=== PATIENT | male | born 1940 | race Caucasian/White ===

== ENCOUNTER 2018-09-01 11:53 | Emergency (ER) | payer MEDICARE, OTHER ==
[~2018-09-01] VITALS: Ht 175.3 cm; Wt 90.0 kg
[~2018-09-01 11:53] MED LIST: APIX5TAB3 PO; ASPI-1265 PO; BUTA1TAB54 PO; ESOM20CA PO; EZET10TA26 PO; FENO145T25 PO; METO25TA6 PO; TRIA1TAB3 PO
[2018-09-01] MEDS ORDERED: HYDROcodone/acetaminophen 5mg/325mg tablet PO ONE (12:25)
[2018-09-01] MEDS ORDERED: HYDR-3965 PO (14:31)
[2018-09-01 14:53] VITALS: BP 126/82
== END 2018-09-01 14:56 | disposition home or self-care (01) ==
LOC: ER 11:57
DX: M79.662 Pain in left lower leg (principal); I82.412 Acute embolism and thrombosis of left femoral vein; I10 Essential (primary) hypertension; E11.9 Type 2 diabetes mellitus without complications; Z79.899 Other long term (current) drug therapy; Z79.82 Long term (current) use of aspirin
CPT/HCPCS: 93970; 99284

== ENCOUNTER 2020-04-15 15:35 | Emergency (ER) | payer MEDICARE, OTHER ==
[~2020-04-15] VITALS: Ht 175.3 cm; Wt 95.0 kg
[~2020-04-15 15:35] MED LIST changes: -EZET10TA26 PO; +EZET10TA48 PO
--- NOTE | 2020-04-15 17:35 | NUR ---
[employer]E [employer] B[employer] AT BEDSIDE.
[2020-04-15 18:27] VITALS: BP 146/82
== END 2020-04-15 18:30 | disposition home or self-care (01) ==
LOC: ER 15:35
DX: K21.9 Gastro-esophageal reflux disease without esophagitis (principal); I10 Essential (primary) hypertension; M79.604 Pain in right leg; E11.9 Type 2 diabetes mellitus without complications; Z86.718 Personal history of other venous thrombosis and embolism; Z90.49 Acquired absence of other specified parts of digestive tract; Z98.890 Other specified postprocedural states; Z79.01 Long term (current) use of anticoagulants
CPT/HCPCS: 93971; 99284

== ENCOUNTER 2023-10-05 16:45 | Emergency (ER) | payer MEDICARE, OTHER ==
[~2023-10-05] VITALS: Ht 175.3 cm; Wt 90.9 kg
[~2023-10-05 16:45] MED LIST changes: +LOP25T PO; -METO25TA6 PO
[2023-10-05 16:52] VITALS: TEMP 97.8
[2023-10-05 17:42] LABS: BASOPHILS # (AUTO) 0.1 X10'3 (0-0.2); BASOPHILS % (AUTO) 1.1 % (0-1); EOSINOPHILS # (AUTO) 0.2 X10'3 (0-0.9); EOSINOPHILS % (AUTO) 2.5 % (0-6); HEMATOCRIT 42.9 % (42.0-52.0); HEMOGLOBIN 15.1 g/dl (14.0-17.9); LYMPHOCYTES # (AUTO) 1.2 X10'3 (1.1-4.8); LYMPHOCYTES % (AUTO) 18.6 % (21-51); MEAN CORPUSCULAR HEMOGLOBIN 31.3 PG (27.0-31.0); MEAN CORPUSCULAR HGB CONC 35.3 g/dL (33.0-36.5); MEAN CORPUSCULAR VOLUME 88.8 FL (78-98); MEAN PLATELET VOLUME 7.9 FL (7.4-10.4); MONOCYTES # (AUTO) 0.5 X10'3 (0-0.9); MONOCYTES % (AUTO) 8.7 % (2-12); NEUTROPHILS # (AUTO) 4.3 X10'3 (1.8-7.7); NEUTROPHILS % (AUTO) 69.1 % (42-75); PLATELET COUNT 199 X10'3 (140-440); RED BLOOD COUNT 4.83 X10'6 (4.70-6.10); RED CELL DISTRIBUTION WIDTH 13.8 % (11.5-14.5); WHITE BLOOD COUNT 6.3 X10'3 (4.5-11.0)
[2023-10-05 18:03] LABS: ALBUMIN 4.1 G/DL (3.4-5.0); ANION GAP 8 (8-16); BLOOD UREA NITROGEN 20 MG/DL (7-18); BUN/CREATININE RATIO 18.2 (10.0-20.0); CALCIUM 9.9 MG/DL (8.5-10.1); CHLORIDE 110 MMOL/L (99-107); GLUCOSE 90 MG/DL (70-104); POTASSIUM 3.6 MMOL/L (3.5-5.1); PRO BRAIN NATRIURETIC PEPTIDE 478 PG/ML (0-450); SODIUM 146 MMOL/L (135-145); TOTAL CARBON DIOXIDE 27.6 MMOL/L (24-32); eCRCL 53 ML/MIN; eGFR 64 ML/MIN
[2023-10-05] MEDS: metoclopramide 5 mg/ml inj IM ONE (18:45)
[2023-10-05] MEDS: diphenhydrAMINE 50 mg/ml inj IM ONE (18:45)
[2023-10-05] MEDS: HYDROcodone/acetaminophen 5mg/325mg tablet PO ONE (18:45)
[2023-10-05 19:11] LABS: APTT 30 SECONDS (22-32); INR 1.1 INR
[2023-10-05 19:14] LABS: ALANINE AMINOTRANSFERASE 39 U/L (12-78); ALBUMIN 4.2 G/DL (3.4-5.0); ALBUMIN/GLOBULIN RATIO 1.4 (1.1-1.5); ALKALINE PHOSPHATASE 57 IU/L (46-116); ANION GAP 8 (8-16); ASPARTATE AMINO TRANSFERASE 26 U/L (10-37); BILIRUBIN,TOTAL 0.7 MG/DL (0.1-1.0); BLOOD UREA NITROGEN 20 MG/DL (7-18); BUN/CREATININE RATIO 18.5 (10.0-20.0); CALCIUM 9.7 MG/DL (8.5-10.1); CHLORIDE 109 MMOL/L (99-107); CREATININE 1.08 MG/DL (0.60-1.10); GLUCOSE 93 MG/DL (70-104); POTASSIUM 3.7 MMOL/L (3.5-5.1); SODIUM 147 MMOL/L (135-145); TOTAL CARBON DIOXIDE 30.1 MMOL/L (24-32); TOTAL PROTEIN 7.3 G/DL (6.4-8.2); eCRCL 54 ML/MIN; eGFR 66 ML/MIN
[2023-10-05 19:20] LABS: PRO BRAIN NATRIURETIC PEPTIDE 519 PG/ML (0-450)
[2023-10-05] MEDS ORDERED: butalbital/acetaminophen/caffeine (Fioricet) tablet PO ONE (19:40)
[2023-10-05] MEDS ORDERED: BUTA-245 PO (19:43)
[2023-10-05] MEDS ORDERED: codeine/butalbital/acetaminophen/caffeine capsule PO ONE (19:55)
[2023-10-05] MEDS: lisinopril 10 MG tablet PO ONE (19:57)
[2023-10-05] MEDS: codeine/butalbital/acetaminophen/caffeine capsule PO ONE (20:11)
[2023-10-05 20:43] LABS: BILIRUBIN,URINE NEGATIVE (Neg); COLOR,URINE YELLOW (Yellow); GLUCOSE, URINE NEGATIVE (Neg); KETONES,URINE NEGATIVE (Neg); LEUKOCYTE ESTERASE ,URINE NEGATIVE (Neg); NITRITES, URINE NEGATIVE (Neg); OCCULT BLOOD,URINE NEGATIVE (Neg); PH,URINE 7.5 (4.8-8.0); PROTEIN,URINE NEGATIVE (Neg); UROBILINOGEN,URINE 0.2 E.U/dL (0.2-1.0)
[2023-10-05 20:44] LABS: CLARITY,URINE SLIGHTLY CLOUDY (Clear); UA COLLECTION TYPE CLN CATCH MIDSTREAM
[2023-10-05 20:54] LABS: BACTERIA,URINE FEW /HPF (Neg); RBC,URINE 0-2 /HPF (0-2); SQUAMOUS EPITHELIAL CELL,UR FEW /LPF (FEW); WBC,URINE 0-4 /HPF (0-4)
[2023-10-05 20:55] LABS: AMORPHOUS PHOSPHATES 2+
[2023-10-05 21:27] VITALS: BP 177/91; PULSE 56; RESP 18; O2SAT 97
== END 2023-10-05 21:28 | disposition home or self-care (01) ==
LOC: ER 16:46
DX: R35.0 Frequency of micturition (principal); I10 Essential (primary) hypertension; R51.9 Headache, unspecified; E11.9 Type 2 diabetes mellitus without complications; Z90.49 Acquired absence of other specified parts of digestive tract; Z79.899 Other long term (current) drug therapy
CPT/HCPCS: 36415; 70450; 71045; 80048; 80053; 81001; 83880; 84484; 85025; 85610; 85730; 87502; 87503; 93005; 99285

== ENCOUNTER 2024-05-22 12:44 | Inpatient (IN) | payer MEDICARE, OTHER ==
[~2024-05-22] VITALS: Ht 175.3 cm; Wt 99.5 kg
[~2024-05-22 12:44] MED LIST changes: -ASPI-1265 PO; +BUTA1TAB48 PO; -BUTA1TAB54 PO; -ESOM20CA PO; +INDLA80C PO; -LOP25T PO; +OLME40TA70 PO; +OMEP20CA16 PO; +POTA-207 PO
[2024-05-22 13:32] LABS: BASOPHILS % (AUTO) 0.4 % (0-1); EOSINOPHILS % (AUTO) 0 % (0-6); HEMATOCRIT 43.5 % (42.0-52.0); LYMPHOCYTES # (AUTO) 0.8 X10'3 (1.1-4.8); LYMPHOCYTES % (AUTO) 10.8 % (21-51); MEAN CORPUSCULAR HEMOGLOBIN 30.7 PG (27.0-31.0); MEAN CORPUSCULAR HGB CONC 34.6 g/dL (33.0-36.5); MEAN CORPUSCULAR VOLUME 88.7 FL (78-98); MEAN PLATELET VOLUME 7.6 FL (7.4-10.4); MONOCYTES # (AUTO) 1.2 X10'3 (0-0.9); MONOCYTES % (AUTO) 16.2 % (2-12); NEUTROPHILS # (AUTO) 5.2 X10'3 (1.8-7.7); NEUTROPHILS % (AUTO) 72.6 % (42-75); PLATELET COUNT 185 X10'3 (140-440); RED CELL DISTRIBUTION WIDTH 14.3 % (11.5-14.5); WHITE BLOOD COUNT 7.2 X10'3 (4.5-11.0)
[2024-05-22 13:44] LABS: ALBUMIN 3.7 G/DL (3.4-5.0); ANION GAP 9 (8-16); BLOOD UREA NITROGEN 21 MG/DL (7-18); BUN/CREATININE RATIO 17.6 (10.0-20.0); CHLORIDE 106 MMOL/L (99-107); CREATININE 1.19 MG/DL (0.60-1.10); GLUCOSE 93 MG/DL (70-104); POTASSIUM 3.5 MMOL/L (3.5-5.1); SODIUM 140 MMOL/L (135-145); TOTAL CARBON DIOXIDE 25.4 MMOL/L (24-32); eCRCL 48 ML/MIN; eGFR 59 ML/MIN
[2024-05-22 13:49] LABS: APTT 31 SECONDS (22-32); INR 1.2 INR; PROTHROMBIN TIME 12.3 SECONDS (9.0-12.0)
[2024-05-22 13:50] LABS: PLATELET ESTIMATE NORMAL; TOTAL CELLS COUNTED 100
[2024-05-22 15:00] LABS: BILIRUBIN,URINE SMALL (Neg); CLARITY,URINE CLEAR (Clear); COLOR,URINE YELLOW (Yellow); GLUCOSE, URINE NEGATIVE (Neg); KETONES,URINE TRACE mg/dl (Neg); LEUKOCYTE ESTERASE ,URINE NEGATIVE (Neg); NITRITES, URINE NEGATIVE (Neg); OCCULT BLOOD,URINE NEGATIVE (Neg); PROTEIN,URINE TRACE mg/dl (Neg); UROBILINOGEN,URINE 0.2 E.U/dL (0.2-1.0)
[2024-05-22 15:07] LABS: UA COLLECTION TYPE VOIDED
[2024-05-22 15:08] LABS: BACTERIA,URINE FEW /HPF (Neg); MUCUS STRANDS MANY /LPF (Neg); RBC,URINE NONE SEEN /HPF (0-2); SQUAMOUS EPITHELIAL CELL,UR FEW /LPF (FEW); WBC,URINE 0-4 /HPF (0-4)
[2024-05-22 15:09] LABS: ALANINE AMINOTRANSFERASE 31 U/L (12-78); ALBUMIN/GLOBULIN RATIO 1.1 (1.1-1.5); ALKALINE PHOSPHATASE 56 IU/L (46-116); ASPARTATE AMINO TRANSFERASE 68 U/L (10-37); BILIRUBIN,TOTAL 0.6 MG/DL (0.1-1.0); TOTAL PROTEIN 7.1 G/DL (6.4-8.2)
[2024-05-22] MEDS ORDERED: CARB1TAB36 PO (19:01)
[2024-05-22] MEDS ORDERED: APIX5TAB3 PO (19:01)
[2024-05-22] MEDS ORDERED: AMLO2.5T5 PO (19:01)
[2024-05-22] MEDS ORDERED: ESCI20TA39 PO (19:01)
[2024-05-22] MEDS ORDERED: OMEP20CA16 PO (19:03)
[2024-05-22] MEDS ORDERED: OLME40TA18 PO (19:03)
[2024-05-22] MEDS ORDERED: UBIQ100C2 PO (19:04)
[2024-05-22] MEDS ORDERED: EZET10TA6 PO (19:05)
[2024-05-22] MEDS ORDERED: FENO145T38 PO (19:05)
[2024-05-22] MEDS ORDERED: PROP40TA72 PO (19:07)
[2024-05-22] MEDS ORDERED: CARB-321 PO (19:10)
[2024-05-22] MEDS ORDERED: potassium Cl 20 mEq SR tablet PO PRN (20:25)
[2024-05-22] MEDS ORDERED: potassium Cl 40MEQ/1/2NS 520ml 520 ML IV PRN (20:25)
[2024-05-22] MEDS ORDERED: magnesium Cl slow-release 64mg tablet PO PRN (20:25)
[2024-05-22] MEDS ORDERED: magnesium sulf-water 2g/50mL 50 ML IV PRN (20:25)
[2024-05-22] MEDS ORDERED: magnesium hydroxide 30ml (MOM) UD suspension PO PRN (20:25)
[2024-05-22] MEDS ORDERED: morphine 2 MG/ML inj. syringe IV PRN (20:25)
[2024-05-22] MEDS ORDERED: ondansetron/PF 4mg/2ml inj IV PRN (20:25)
[2024-05-22] MEDS ORDERED: magnesium sulf-water 4G/100mL 100 ML IV PRN (20:25)
[2024-05-22] MEDS ORDERED: PERFLUTREN PROTEIN-A MICROSPHR (Optison) 0.22 MG/ML 3ML VIAL IV PRN (20:35)
[2024-05-22] MEDS: normal saline 1000ml 1,000 ML IV SCH (23:06)
[2024-05-22 23:07] VITALS: PULSE 59; RESP 20; O2SAT 95
[2024-05-22] MEDS: carbidoba-levodopa 25-100mg tablet PO ONE (23:18)
[2024-05-23] MEDS ORDERED: carbidoba-levodopa 25-100mg tablet PO SCH
[2024-05-23] MEDS: apixaban 5mg tablet PO STA (00:07)
[2024-05-23] MEDS ORDERED: iohexol 350MG/ML 100ml bottle IV ONE (05:13)
[2024-05-23] MEDS: acetaminophen 325mg tablet PO PRN (05:43)
[2024-05-23] MEDS: K and/or MAG REPLACEMENT MC SCH (06:17)
[2024-05-23 07:23] LABS: BASOPHILS % (AUTO) 0.4 % (0-1); EOSINOPHILS % (AUTO) 0.2 % (0-6); HEMATOCRIT 40.6 % (42.0-52.0); HEMOGLOBIN 14.1 g/dl (14.0-17.9); LYMPHOCYTES # (AUTO) 0.7 X10'3 (1.1-4.8); LYMPHOCYTES % (AUTO) 14.2 % (21-51); MEAN CORPUSCULAR HEMOGLOBIN 30.5 PG (27.0-31.0); MEAN CORPUSCULAR HGB CONC 34.6 g/dL (33.0-36.5); MEAN CORPUSCULAR VOLUME 88.1 FL (78-98); MONOCYTES # (AUTO) 0.7 X10'3 (0-0.9); MONOCYTES % (AUTO) 14.1 % (2-12); NEUTROPHILS # (AUTO) 3.6 X10'3 (1.8-7.7); NEUTROPHILS % (AUTO) 71.1 % (42-75); PLATELET COUNT 148 X10'3 (140-440); RED BLOOD COUNT 4.61 X10'6 (4.70-6.10)
[2024-05-23 07:50] LABS: ALBUMIN 3.2 G/DL (3.4-5.0); ANION GAP 11 (8-16); BLOOD UREA NITROGEN 17 MG/DL (7-18); BUN/CREATININE RATIO 16.8 (10.0-20.0); CALCIUM 9.3 MG/DL (8.5-10.1); CHLORIDE 105 MMOL/L (99-107); CHOL/HDL RATIO 4.1 (0.00-4.99); CHOLESTEROL 147 MG/DL (0-200); CREATININE 1.01 MG/DL (0.60-1.10); GLUCOSE 95 MG/DL (70-104); HDL CHOLESTEROL 36 MG/DL (35-60); LDL CHOLESTEROL 97 MG/DL (50-100); MAGNESIUM 1.9 MG/DL (1.5-2.4); POTASSIUM 3.4 MMOL/L (3.5-5.1); SODIUM 140 MMOL/L (135-145); TOTAL CARBON DIOXIDE 23.7 MMOL/L (24-32); TRIGLYCERIDES 117 MG/DL (20-135); eCRCL 56 ML/MIN; eGFR 71 ML/MIN
[2024-05-23] MEDS: PROPANOLOL 80 MG PO SCH (08:00)
[2024-05-23] MEDS: apixaban 5mg tablet PO SCH (08:36)
[2024-05-23] MEDS: docusate sod 100mg capsule PO SCH (08:36)
[2024-05-23] MEDS: fenofibrate 145mg tablet PO SCH (08:36)
[2024-05-23] MEDS: carbidoba-levodopa 25-100mg tablet PO SCH (08:36)
[2024-05-23] MEDS: ezetimibe 10mg tablet PO SCH (08:36)
[2024-05-23] MEDS: ESCITALOPRAM 10 mg tablet 10 MG TABLET PO SCH (08:37)
[2024-05-23] MEDS: pantoprazole 40mg Tablet.DR PO SCH (08:37)
[2024-05-23] MEDS: HYDROcodone/acetaminophen 5mg/325mg tablet PO PRN (12:40)
[2024-05-23] MEDS: aspirin 81mg, enteric-coated 1 TAB TABLET.DR PO SCH (13:59)
[2024-05-23 16:00] VITALS: BP 167/86; PULSE 67; TEMP 98; O2SAT 98
[2024-05-23] MEDS: potassium Cl 20 mEq SR tablet PO PRN (16:17)
[2024-05-23 18:00] VITALS: BP 167/86; PULSE 67; RESP 18; TEMP 98; O2SAT 96
[2024-05-23 20:00] VITALS: RESP 18; O2SAT 98
[2024-05-23] MEDS: atorvastatin 20mg tablet PO SCH (20:58)
[2024-05-23 22:00] VITALS: BP 186/100; PULSE 58; RESP 18; TEMP 98.5; O2SAT 96
[2024-05-24] VITALS (7 sets, daily range): BP systolic 125–163; BP diastolic 80–92; PULSE 59–95; RESP 17–20; TEMP 97.6–98.8; O2SAT 93–99
[2024-05-24 06:53] LABS: BASOPHILS % (AUTO) 0.4 % (0-1); EOSINOPHILS # (AUTO) 0.1 X10'3 (0-0.9); EOSINOPHILS % (AUTO) 1.8 % (0-6); HEMATOCRIT 42.8 % (42.0-52.0); HEMOGLOBIN 14.7 g/dl (14.0-17.9); LYMPHOCYTES # (AUTO) 0.8 X10'3 (1.1-4.8); MEAN CORPUSCULAR HEMOGLOBIN 30.5 PG (27.0-31.0); MEAN CORPUSCULAR HGB CONC 34.4 g/dL (33.0-36.5); MEAN CORPUSCULAR VOLUME 88.7 FL (78-98); MEAN PLATELET VOLUME 8.1 FL (7.4-10.4); MONOCYTES # (AUTO) 0.5 X10'3 (0-0.9); MONOCYTES % (AUTO) 14.4 % (2-12); NEUTROPHILS # (AUTO) 2.3 X10'3 (1.8-7.7); NEUTROPHILS % (AUTO) 61.4 % (42-75); PLATELET COUNT 167 X10'3 (140-440); RED BLOOD COUNT 4.82 X10'6 (4.70-6.10); RED CELL DISTRIBUTION WIDTH 14.2 % (11.5-14.5); WHITE BLOOD COUNT 3.7 X10'3 (4.5-11.0)
[2024-05-24 07:03] LABS: ALBUMIN 3.2 G/DL (3.4-5.0); ANION GAP 9 (8-16); BLOOD UREA NITROGEN 15 MG/DL (7-18); BUN/CREATININE RATIO 17.4 (10.0-20.0); C-REACTIVE PROTEIN 2.65 MG/DL (0.0-0.5); CALCIUM 9.6 MG/DL (8.5-10.1); CHLORIDE 107 MMOL/L (99-107); CREATINE KINASE 439 U/L (39-308); CREATININE 0.86 MG/DL (0.60-1.10); GLUCOSE 98 MG/DL (70-104); MAGNESIUM 1.9 MG/DL (1.5-2.4); POTASSIUM 3.5 MMOL/L (3.5-5.1); SODIUM 142 MMOL/L (135-145); TOTAL CARBON DIOXIDE 25.6 MMOL/L (24-32); eCRCL 66 ML/MIN; eGFR 85 ML/MIN
[2024-05-24] MEDS: pantoprazole 40 MG vial IV SCH (07:35)
[2024-05-24 08:24] LABS: HEMOGLOBIN A1C 5.2 % (4.5-6.2)
[2024-05-24] MEDS: metoprolol succinate 25mg (24-HOUR) SR. Tablet PO SCH (10:34)
[2024-05-24] MEDS: metoprolol succinate 25mg (24-HOUR) SR. Tablet PO ONE ×2 (10:38→10:39)
[2024-05-25 06:00] VITALS: BP 171/92; PULSE 70; RESP 16; TEMP 98; O2SAT 92
[2024-05-25] MEDS: propranolol 40mg tablet PO SCH (07:15)
[2024-05-25 07:26] LABS: BASOPHILS % (AUTO) 0.6 % (0-1); EOSINOPHILS # (AUTO) 0.1 X10'3 (0-0.9); HEMATOCRIT 42.2 % (42.0-52.0); HEMOGLOBIN 14.5 g/dl (14.0-17.9); LYMPHOCYTES # (AUTO) 0.9 X10'3 (1.1-4.8); LYMPHOCYTES % (AUTO) 23.8 % (21-51); MEAN CORPUSCULAR HEMOGLOBIN 30.3 PG (27.0-31.0); MEAN CORPUSCULAR HGB CONC 34.3 g/dL (33.0-36.5); MEAN CORPUSCULAR VOLUME 88.3 FL (78-98); MEAN PLATELET VOLUME 8.4 FL (7.4-10.4); MONOCYTES # (AUTO) 0.5 X10'3 (0-0.9); MONOCYTES % (AUTO) 13.1 % (2-12); NEUTROPHILS # (AUTO) 2.3 X10'3 (1.8-7.7); NEUTROPHILS % (AUTO) 60.5 % (42-75); PLATELET COUNT 153 X10'3 (140-440); RED BLOOD COUNT 4.77 X10'6 (4.70-6.10); RED CELL DISTRIBUTION WIDTH 14.2 % (11.5-14.5); WHITE BLOOD COUNT 3.8 X10'3 (4.5-11.0)
[2024-05-25] MEDS: amLODIPine 5mg tablet PO SCH (09:06)
[2024-05-25 09:31] LABS: ALBUMIN 3.1 G/DL (3.4-5.0); ANION GAP 11 (8-16); BLOOD UREA NITROGEN 13 MG/DL (7-18); CALCIUM 9.1 MG/DL (8.5-10.1); CHLORIDE 107 MMOL/L (99-107); CREATININE 0.81 MG/DL (0.60-1.10); GLUCOSE 94 MG/DL (70-104); MAGNESIUM 1.6 MG/DL (1.5-2.4); POTASSIUM 3.2 MMOL/L (3.5-5.1); SODIUM 140 MMOL/L (135-145); TOTAL CARBON DIOXIDE 22.2 MMOL/L (24-32); eCRCL 70 ML/MIN; eGFR > 90 ML/MIN
[2024-05-25 10:00] VITALS: BP 163/94; PULSE 58; RESP 17; TEMP 97.8; O2SAT 95
[2024-05-25 18:00] VITALS: BP 170/90; PULSE 56; RESP 14; TEMP 98.5; O2SAT 96
[2024-05-25] MEDS ORDERED: potassium Cl 40MEQ/1/2NS 520ml 520 ML IV PRN (22:20)
[2024-05-25] MEDS ORDERED: magnesium sulf-water 2g/50mL 50 ML IV PRN (22:20)
[2024-05-25] MEDS ORDERED: magnesium Cl slow-release 64mg tablet PO PRN (22:20)
[2024-05-25] MEDS ORDERED: potassium Cl 20 mEq SR tablet PO PRN (22:20)
[2024-05-25] MEDS ORDERED: magnesium sulf-water 4G/100mL 100 ML IV PRN (22:20)
[2024-05-26] MEDS: potassium Cl 20 mEq SR tablet PO PRN (00:06)
[2024-05-26 06:00] VITALS: BP 159/82; PULSE 60; RESP 16; TEMP 98.1; O2SAT 96
[2024-05-26 06:55] LABS: BASOPHILS % (AUTO) 0.4 % (0-1); EOSINOPHILS # (AUTO) 0.1 X10'3 (0-0.9); EOSINOPHILS % (AUTO) 2.8 % (0-6); HEMATOCRIT 39.8 % (42.0-52.0); HEMOGLOBIN 13.9 g/dl (14.0-17.9); LYMPHOCYTES # (AUTO) 1.2 X10'3 (1.1-4.8); LYMPHOCYTES % (AUTO) 25.9 % (21-51); MEAN CORPUSCULAR HEMOGLOBIN 30.7 PG (27.0-31.0); MEAN CORPUSCULAR HGB CONC 34.9 g/dL (33.0-36.5); MEAN CORPUSCULAR VOLUME 88.1 FL (78-98); MEAN PLATELET VOLUME 7.9 FL (7.4-10.4); MONOCYTES # (AUTO) 0.6 X10'3 (0-0.9); MONOCYTES % (AUTO) 12.3 % (2-12); NEUTROPHILS # (AUTO) 2.7 X10'3 (1.8-7.7); NEUTROPHILS % (AUTO) 58.6 % (42-75); PLATELET COUNT 160 X10'3 (140-440); RED BLOOD COUNT 4.52 X10'6 (4.70-6.10); RED CELL DISTRIBUTION WIDTH 14.2 % (11.5-14.5); WHITE BLOOD COUNT 4.6 X10'3 (4.5-11.0)
[2024-05-26 07:21] LABS: ALBUMIN 2.9 G/DL (3.4-5.0); ANION GAP 2 (8-16); BLOOD UREA NITROGEN 17 MG/DL (7-18); BUN/CREATININE RATIO 16.2 (10.0-20.0); CALCIUM 9.2 MG/DL (8.5-10.1); CHLORIDE 105 MMOL/L (99-107); CREATININE 1.05 MG/DL (0.60-1.10); GLUCOSE 95 MG/DL (70-104); MAGNESIUM 1.6 MG/DL (1.5-2.4); POTASSIUM 4.1 MMOL/L (3.5-5.1); SODIUM 137 MMOL/L (135-145); eCRCL 54 ML/MIN; eGFR 68 ML/MIN
[2024-05-26 08:00] VITALS: RESP 16; O2SAT 94
[2024-05-26] MEDS ORDERED: ASPI-1071 PO (10:49)
[2024-05-26] MEDS ORDERED: NOR5T PO (10:49)
[2024-05-26] MEDS ORDERED: METO-395 PO (10:49)
[2024-05-26 11:15] VITALS: BP 151/81; PULSE 55; RESP 18; TEMP 97.9; O2SAT 96
[2024-05-26] MEDS: mag hydrox/Alum hydrox/simeth 30ml oral suspension PO PRN (16:39)
[2024-05-26 22:00] VITALS: BP 139/78; PULSE 72; RESP 16; TEMP 98.1; O2SAT 93
[2024-05-27 06:00] VITALS: BP 126/74; PULSE 62; RESP 17; TEMP 98; O2SAT 97
[2024-05-27 06:44] LABS: BASOPHILS % (AUTO) 0.4 % (0-1); EOSINOPHILS # (AUTO) 0.1 X10'3 (0-0.9); EOSINOPHILS % (AUTO) 2.7 % (0-6); HEMATOCRIT 39.3 % (42.0-52.0); HEMOGLOBIN 13.7 g/dl (14.0-17.9); LYMPHOCYTES # (AUTO) 0.8 X10'3 (1.1-4.8); LYMPHOCYTES % (AUTO) 20.9 % (21-51); MEAN CORPUSCULAR HEMOGLOBIN 30.7 PG (27.0-31.0); MEAN CORPUSCULAR HGB CONC 34.9 g/dL (33.0-36.5); MEAN CORPUSCULAR VOLUME 88.1 FL (78-98); MEAN PLATELET VOLUME 7.9 FL (7.4-10.4); MONOCYTES # (AUTO) 0.6 X10'3 (0-0.9); MONOCYTES % (AUTO) 13.9 % (2-12); NEUTROPHILS # (AUTO) 2.5 X10'3 (1.8-7.7); NEUTROPHILS % (AUTO) 62.1 % (42-75); PLATELET COUNT 159 X10'3 (140-440); RED BLOOD COUNT 4.46 X10'6 (4.70-6.10); RED CELL DISTRIBUTION WIDTH 13.8 % (11.5-14.5)
[2024-05-27 06:49] LABS: ALBUMIN 2.9 G/DL (3.4-5.0); ANION GAP 6 (8-16); BLOOD UREA NITROGEN 19 MG/DL (7-18); CALCIUM 9.2 MG/DL (8.5-10.1); CHLORIDE 108 MMOL/L (99-107); CREATININE 0.95 MG/DL (0.60-1.10); GLUCOSE 88 MG/DL (70-104); POTASSIUM 3.5 MMOL/L (3.5-5.1); SODIUM 140 MMOL/L (135-145); eCRCL 60 ML/MIN; eGFR 76 ML/MIN
[2024-05-27 10:00] VITALS: BP 165/82; PULSE 60; RESP 16; TEMP 97.9; O2SAT 98
[2024-05-27] MEDS ORDERED: lactose-reduced food (Ensure Enlive) - 237ml bottle PO SCH (17:30)
== END 2024-05-27 17:21 | disposition home health service (06) | DRG 682 ==
LOC: ER 12:44 → ED HOLD 20:33 → EDBEDREQ 05-23 00:08 → ORTHO 4S 05-23 15:29
PROVIDERS: ADMIT Internal Medicine Critical Care Medicine; ATTEND Nurse Practitioner Family
PROC: B3251ZZ Computerized Tomography (CT Scan) of Bilateral Common Carotid Arteries using Low Osmolar Contrast (ICD-10-PCS; principal; 2024-05-23)
PROC: B32G1ZZ Computerized Tomography (CT Scan) of Bilateral Vertebral Arteries using Low Osmolar Contrast (ICD-10-PCS; 2024-05-23)
PROC: B32R1ZZ Computerized Tomography (CT Scan) of Intracranial Arteries using Low Osmolar Contrast (ICD-10-PCS; 2024-05-23)
PROC: B3281ZZ Computerized Tomography (CT Scan) of Bilateral Internal Carotid Arteries using Low Osmolar Contrast (ICD-10-PCS; 2024-05-23)
PROC: 5A09357 Assistance with Respiratory Ventilation, Less than 24 Consecutive Hours, Continuous Positive Airway Pressure (ICD-10-PCS; 2024-05-24)
PROC: 5A09357 Assistance with Respiratory Ventilation, Less than 24 Consecutive Hours, Continuous Positive Airway Pressure (ICD-10-PCS; 2024-05-25)
DX: N17.9 Acute kidney failure, unspecified (principal); U07.1 COVID-19; I48.92 Unspecified atrial flutter; E86.0 Dehydration; I10 Essential (primary) hypertension; G20.A1 Parkinson's disease without dyskinesia, without mention of fluctuations; E87.6 Hypokalemia; E78.5 Hyperlipidemia, unspecified; F41.9 Anxiety disorder, unspecified; Z90.49 Acquired absence of other specified parts of digestive tract; Z79.899 Other long term (current) drug therapy
CPT/HCPCS: 36415; 70450; 70496; 70498; 70551; 71045; 76700; 80048; 80053; 80061; 81001; 82085; 82550; 83036; 83735; 83930; 85007; 85025; 85610; 85651; 85730; 86140; 87081; 87811; 92508; 92616; 93005; 93306; 93880; 94660; 94760; 97110; 97116; 97161; 97530; 99285; G0378; J2470; J7030; J7070; Q9967